=== PATIENT | male | born 1960 | race Native Hawaiian/Other Pacific Islander ===

== ENCOUNTER 2021-04-15 10:15 | Outpatient (CLI) | payer OTHER ==
[2021-04-15 10:38] LABS: PLATELET COUNT 154 K/uL (142-355)
[2021-04-15 11:18] LABS: POTASSIUM 4.2 mmol/L (3.6-5.2)
== END 2021-04-15 19:57 | disposition home or self-care (01) ==
LOC: LABW 10:15
PROVIDERS: ATTEND Registered Nurse
DX: R31.0 Gross hematuria (principal)
CPT/HCPCS: 36415; 80053; 85027